=== PATIENT | male | born 1970 | race Two or more races ===

== ENCOUNTER 2017-01-19 09:46 | Emergency (ER) | payer MEDICAID ==
[~2017-01-19] VITALS: Ht 170.2 cm; Wt 78.0 kg
[2017-01-19 09:58] VITALS: BP 121/71; PULSE 54; RESP 15; TEMP 96.9; O2SAT 99
[2017-01-19] MEDS ORDERED: IBUPROFEN 800 MG TABLET PO ONE (10:15)
[2017-01-19 11:22] VITALS: BP 121/71; PULSE 54; RESP 15; TEMP 96.9; O2SAT 99
== END 2017-01-19 11:22 | disposition home or self-care (01) ==
LOC: SED 09:46
DX: M50.10 Cervical disc disorder with radiculopathy, unspecified cervical region (principal)
CPT/HCPCS: 72125-TC; 99284

== ENCOUNTER 2019-12-23 15:12 | Emergency (ER) | payer MEDICAID ==
[~2019-12-23] VITALS: Ht 170.2 cm; Wt 74.8 kg
[2019-12-23 15:30] VITALS: BP_SYST 122
--- NOTE | 2019-12-23 15:48 | NUR ---
Patient transported to radiology via AMBULATED, accompanied by RAD STAFF.
--- NOTE | 2019-12-23 15:55 | NUR ---
Patient to ER bed 03 for evaluation. Side rails up.
--- NOTE | 2019-12-23 16:02 | NUR ---
Pt AAOx4 ambulated into ED c/o R lateral hand pain s/p mechanical fall prior to arrival. Cap refill <3, no obvious deformities noted. Skin pink dry and warm, breathing even and unlabored. No other injuries/complaints per pt/noted. will continue to monitor.
--- NOTE | 2019-12-23 16:05 | NUR ---
ER Dr. العلي at bedside examining patient.
--- NOTE | 2019-12-23 16:46 | NUR ---
Ulnar gutter splint applied to R arm splint. + pulse noted. Capillary refill <3 seconds. Patient has ability to move non-splinted digits. Has sensation present to affected site. Skin color within normal limits. Applied for pain management control.
--- NOTE | 2019-12-23 17:03 | NUR ---
Patient given written and verbal discharge instructions and verbalizes understanding. ER MD العلي discussed with patient the results and treatment provided. Patient in stable condition. ID arm band removed. Rx of Naprosyn given. Patient educated on pain management and to follow up with PMD. Pain Scale 0.Opportunity for questions provided and answered. Medication side effect fact sheet provided.
[2019-12-23 17:05] VITALS: BP_SYST 124
== END 2019-12-23 17:05 | disposition home or self-care (01) ==
LOC: SED 15:12
DX: S62.396A Other fracture of fifth metacarpal bone, right hand, initial encounter for closed fracture (principal); W19.XXXA Unspecified fall, initial encounter; Y93.89 Activity, other specified; Y92.89 Other specified places as the place of occurrence of the external cause; Y99.8 Other external cause status
CPT/HCPCS: 99283

== ENCOUNTER 2022-12-08 12:49 | Emergency (ER) | payer MEDICAID ==
[~2022-12-08] VITALS: Ht 170.2 cm; Wt 78.0 kg
[2022-12-08 12:50] VITALS: BP_SYST 135
[2022-12-08 15:20] LABS: CALCIUM 9.6 mg/dL (8.4-11.0); CREATININE 0.95 mg/dL (0.55-1.30)
[2022-12-08 15:25] LABS: BASOPHILS % (AUTO) 0.9 % (0.0-2.0); EOSINOPHILS # (AUTO) 0.1 K/uL (0.0-0.4); EOSINOPHILS % (AUTO) 1.6 % (0.0-4.0); HEMATOCRIT 43.3 % (36-54); HEMOGLOBIN 13.8 g/dL (14.0-18.0); LYMPHOCYTES # (AUTO) 2.2 K/uL (1.0-5.5); LYMPHOCYTES % (AUTO) 41.4 % (20.5-51.5); MEAN CORPUSCULAR HEMOGLOBIN 22 pg (27-31); MEAN CORPUSCULAR HGB CONC 32 % (32-36); MEAN CORPUSCULAR VOLUME 70 fL (79.0-98.0); MONOCYTES # (AUTO) 0.5 K/uL (0.0-1.0); MONOCYTES % (AUTO) 9.4 % (1.7-9.3); NEUTROPHILS # (AUTO) 2.4 K/uL (1.8-7.7); NEUTROPHILS % (AUTO) 46.7 % (40.0-70.0); PLATELET COUNT (AUTO) 273 K/uL (130-430); RED BLOOD CELL COUNT(AUTO) 6.23 MIL/uL (4.2-6.2); RED CELL DISTRIBUTION WIDTH 15.2 % (9.0-15.0); WHITE BLOOD COUNT (AUTO) 5.2 K/uL (4.8-10.8)
[2022-12-08 15:26] LABS: ALBUMIN 3.9 g/dL (3.4-4.8); TOTAL BILIRUBIN 0.3 mg/dL (0.0-1.0)
[2022-12-08 15:49] LABS: BILIRUBIN,URINE NEGATIVE (NEGATIVE); BLOOD, URINE NEGATIVE (NEGATIVE); CLARITY/URINE CLEAR (CLEAR); COLOR,URINE YELLOW (YELLOW); GLUCOSE,URINE NEGATIVE (NEGATIVE); KETONES,URINE NEGATIVE (NEGATIVE); LEUKOCYTE ESTERASE ,URINE NEGATIVE (NEGATIVE); NITRITE, URINE NEGATIVE (NEGATIVE); PH,URINE 5.5 (5.0-8.0); PROTEIN URINE NEGATIVE (NEGATIVE); UROBILINOGEN,URINE 0.2 (0.2-1.0)
[2022-12-08] MEDS ORDERED: IBUP-1969 PO (16:04)
== END 2022-12-08 16:28 | disposition home or self-care (01) ==
LOC: SED 12:49
DX: R10.31 Right lower quadrant pain (principal); M77.12 Lateral epicondylitis, left elbow; R35.0 Frequency of micturition; Z79.899 Other long term (current) drug therapy
CPT/HCPCS: 36415; 76376; 80053; 81003; 83690; 85025; 99285